=== PATIENT | female | born 1975 | race Caucasian/White ===

== ENCOUNTER 2020-02-27 14:08 | Emergency (ER) | payer OTHER ==
[~2020-02-27] VITALS: Ht 172.7 cm; Wt 65.8 kg
--- NOTE | 2020-02-27 14:25 | NUR ---
nausea and vomiting x 3 days. Patient a/ox4, breathing even and unlabored, no sob ntoed, needs attended, no sob noted.
[2020-02-27] MEDS ORDERED: ONDANSETRON HCL/PF 4 MG/2 ML VIAL ONE (14:29)
[2020-02-27] MEDS ORDERED: IV NS 0.9% 1,000 ML BAG IV ONE (14:30)
[2020-02-27] MEDS ORDERED: ONDANSETRON HCL/PF 4 MG/2 ML VIAL IVP ONE (14:30)
[2020-02-27] MEDS ORDERED: ONDANSETRON 4 MG TAB.RAPDIS ONE (14:50)
--- NOTE | 2020-02-27 14:55 | NUR ---
Patient refused to have IV inserted, refused iv fluids and blood drawn. Explained risks and benefits still refused. Per patient, "Im a hard stick, its just a stomach flu, I dont even want to be here."Dr. Leal made aware.
[2020-02-27] MEDS ORDERED: ONDANSETRON 4 MG TAB.RAPDIS SL ONE (15:00)
[2020-02-27 15:03] VITALS: BP 97/62
--- NOTE | 2020-02-27 15:03 | NUR ---
Patient discharged to home in stable condition. Written and verbal after care instructions given. Patient verbalizes understanding of instruction.
== END 2020-02-27 15:03 | disposition home or self-care (01) ==
LOC: ER 14:11
DX: R11.2 Nausea with vomiting, unspecified (principal)
CPT/HCPCS: 99283; Q0162; J2405; J7030

== ENCOUNTER 2020-12-31 19:29 | Emergency (ER) | payer OTHER ==
[~2020-12-31] VITALS: Ht 172.7 cm; Wt 65.8 kg
--- NOTE | 2020-12-31 19:31 | NUR ---
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 DR SCHAFER MADE AWARE.
[2020-12-31 21:47] LABS: CALCIUM, SERUM 8.5 mg/dL (8.5-10.1); CARBON DIOXIDE 25 mmol/L (21-32); CHLORIDE 103 mmol/L (98-107); CREATININE 0.7 mg/dL (0.6-1.3); GLUCOSE 95 mg/dL (74-106); SODIUM SERUM 135 mmol/L (136-145); UREA NITROGEN, BLOOD 14 mg/dL (7-18)
[2020-12-31 21:53] LABS: BASOPHILS # (AUTO) 0.1 K/uL (0.0-0.2); BASOPHILS % (AUTO) 1.6 % (0.0-2.0); EOSINOPHILS % (AUTO) 4.5 % (0.0-6.0); HEMATOCRIT 31 % (33-45); LYMPHOCYTES # (AUTO) 1.3 K/uL (0.8-4.8); LYMPHOCYTES % (AUTO) 25.1 % (20.0-44.0); MEAN CORPUSCULAR HGB CONC 32 g/dl (31.0-36.0); MEAN CORPUSCULAR VOLUME 81 fL (82-100); MONOCYTES # (AUTO) 0.4 K/uL (0.1-1.30); MONOCYTES % (AUTO) 8.5 % (2.0-12.0); NEUTROPHILS % (AUTO) 60.3 % (43.0-81.0); PLATELET COUNT (AUTO) 286 K/uL (150-450)
--- NOTE | 2020-12-31 23:05 | NUR ---
Patient discharged to home in stable condition. Written and verbal after care instructions given. Patient verbalizes understanding of instruction. Pt ambulatory with a steady gait
[2020-12-31 23:12] VITALS: BP 121/60
== END 2020-12-31 23:05 | disposition home or self-care (01) ==
LOC: ER 19:31
DX: R20.2 Paresthesia of skin (principal); D64.9 Anemia, unspecified; F19.90 Other psychoactive substance use, unspecified, uncomplicated; M19.90 Unspecified osteoarthritis, unspecified site; R94.31 Abnormal electrocardiogram [ECG] [EKG]
CPT/HCPCS: 36415; 71045-TC; 80048-TC; 83880; 84484-TC; 85025-TC

== ENCOUNTER 2021-11-18 04:12 | Emergency (ER) | payer OTHER ==
[~2021-11-18] VITALS: Ht 172.7 cm; Wt 72.6 kg
--- NOTE | 2021-11-18 04:40 | NUR ---
BIBS FOR C/O R FOOT PAIN AND SWELLING X 2 WEEKS, -INJURY OR TRAUMA. -PT A/OX4. TOLERATING R/A WELL WITH NO SOB.
--- NOTE | 2021-11-18 06:17 | NUR ---
CALLED RADIOLOGY TO FOLLOW UP WITH US
[2021-11-18 09:00] VITALS: BP 110/78
--- NOTE | 2021-11-18 09:54 | NUR ---
Patient discharged to home in stable condition. Written and verbal after care instructions given. Patient verbalizes understanding of instruction.
== END 2021-11-18 09:54 | disposition home or self-care (01) ==
LOC: ER 04:16
DX: R60.9 Edema, unspecified (principal); M19.90 Unspecified osteoarthritis, unspecified site
CPT/HCPCS: 93971-TC

== ENCOUNTER 2022-06-15 04:29 | Emergency (ER) | payer OTHER ==
[~2022-06-15] VITALS: Ht 170.2 cm; Wt 68.0 kg
--- NOTE | 2022-06-15 04:48 | NUR ---
BIBWIFE FROM HOME C/O HEMATURIA, POLYURIA, DYSURIA X2 DAYS. AFEBRILE. PT A/OX4. TOLERATING R/A WELL WITH NO RESP DISTRESS. SAFETY MEASURES IN PLACE.
--- NOTE | 2022-06-15 04:50 | NUR ---
SEEN BY DR LUNA AT BEDSIDE
--- NOTE | 2022-06-15 04:51 | NUR ---
URINE COLLECTED AND SENT TO LAB
[2022-06-15 07:00] LABS: BILIRUBIN,URINE NEGATIVE (NEGATIVE); COLOR,URINE YELLOW (YELLOW); LEUKOCYTE ESTERASE ,URINE TRACE (NEGATIVE); NITRITE, URINE POSITIVE (NEGATIVE); PROTEIN,URINE 1+ mg/dl (NEGATIVE); UGLUCOSE NEGATIVE (NEGATIVE); UROBILINOGEN,URINE 0.2 EU/dL (0.2)
--- NOTE | 2022-06-15 07:09 | NUR ---
STILL WITH PENDING URINE RESULT
[2022-06-15 07:12] LABS: BACTERIA,URINE Few /HPF (None Seen); SQUAMOUS EPITHELIAL CELL,UR Moderate /HPF (None Seen)
[2022-06-15] MEDS ORDERED: CEPH500C2 PO (07:20)
--- NOTE | 2022-06-15 07:25 | NUR ---
Patient discharged to home in stable condition. Written and verbal after care instructions given. Patient verbalizes understanding of instruction.
[2022-06-15 07:26] VITALS: BP 108/85
== END 2022-06-15 07:26 | disposition home or self-care (01) ==
LOC: ER 04:33
DX: N39.0 Urinary tract infection, site not specified (principal); M19.90 Unspecified osteoarthritis, unspecified site; Z86.73 Personal history of transient ischemic attack (TIA), and cerebral infarction without residual deficits
CPT/HCPCS: 81001; 84703-TC; 87086-TC